=== PATIENT | male | born 1985 | race Caucasian/White ===

== ENCOUNTER 2024-12-11 05:27 | Emergency (ER) | payer BC ==
[~2024-12-11] VITALS: Ht 177.8 cm; Wt 113.4 kg
[2024-12-11] MEDS ORDERED: NS 1,000 ML IV SCH (06:15)
[2024-12-11] MEDS ORDERED: Prochlorperazine Edisylate 10 mg Vial IV ONE (06:15)
[2024-12-11] MEDS ORDERED: Acetaminophen 500 MG Tab PO ONE (06:15)
[2024-12-11] MEDS ORDERED: DiphenhydrAMINE HCl 50 MG/ML 1ML Vial IV ONE (06:15)
[2024-12-11 06:54] LABS: BASOPHILS ABSOLUTE AUTO 0.06 K/mm3 (0.00-0.23); BASOPHILS PERCENT AUTO 1 % (0-2); EOSINOPHILS ABSOLUTE AUTO 0.16 K/mm3 (0.00-0.68); EOSINOPHILS PERCENT AUTO 2 % (0-6); Hematocrit 45.5 % (37.0-53.0); IMMATURE GRAN ABSOLUTE AUTO 0.03 K/mm3 (0.00-0.10); IMMATURE GRAN PERCENT AUTO 0 % (0-1); LYMPHOCYTES ABSOLUTE AUTO 1.81 K/mm3 (0.84-5.20); LYMPHOCYTES PERCENT AUTO 17 % (21-46); MONOCYTES ABSOLUTE AUTO 0.65 K/mm3 (0.16-1.47); MONOCYTES PERCENT AUTO 6 % (4-13); Mean Corpuscular HGB 31.2 pg (26.0-34.0); Mean Corpuscular HGB Conc 35.2 g/dL (31.5-36.5); Mean Corpuscular Volume 89 fL (80-100); Mean Platelet Volume 9.8 fL (9.1-12.4); NEUTROPHILS ABSOLUTE AUTO 8.04 K/mm3 (1.96-9.15); NEUTROPHILS PERCENT AUTO 75 % (41-73); Platelet Count 301 K/mm3 (150-400); RDW Standard Deviation 42.6 fL (35.1-46.3); Red Blood Cell Count 5.13 M/mm3 (4.30-5.90); White Blood Cell Count 10.75 K/mm3 (4.00-11.30)
[2024-12-11 07:45] LABS: Calcium, Blood 9.4 mg/dL (8.5-10.1); Creatinine, Blood 0.93 mg/dL (0.60-1.20); Potassium, Blood 3.6 mmol/L (3.5-5.5)
[2024-12-11] MEDS ORDERED: ACET500 PO (08:07)
[2024-12-11] MEDS ORDERED: IBUP600 PO (08:07)
[2024-12-11] MEDS ORDERED: METO10 PO (08:08)
== END 2024-12-11 08:14 | disposition home or self-care (01) ==
LOC: ER 05:27
PROVIDERS: Emergency Medicine
DX: G44.009 Cluster headache syndrome, unspecified, not intractable (principal)
CPT/HCPCS: 70450; 80048; 85025; 96361; 96374; 96375; 99284-25; A9270; J0780; J1200; J7030